=== PATIENT | male | born 1960 | race Caucasian/White ===

== ENCOUNTER 2016-04-11 21:33 | Emergency (ER) | payer OTHER ==
[~2016-04-11] VITALS: Ht 180.3 cm; Wt 124.1 kg
[~2016-04-11 21:33] MED LIST: ADVIL200 MG PO; AMLODIPINE BESYL5 MG PO; AUGMENTIN875 MG PO; AZITHROMYCIN500 M1 PO; CARVEDILOL6.25 MG PO; COZAAR50 MG PO; FISH OIL 1,0001 EAC8 PO; FLAXSEED-FISH-400 MG PO; FLEXERIL10 MG PO; FLONASE16 G1 BOTH NARES; FLOVENT DISKUS1 DIS2 IH; LO-DOSE ASPIRIN81 M2 PO; MAGNESIUM OXID500 MG PO; NABUMETONE750 MG PO; ONE DAILY WITH1 EACH PO; VITAMIN D34000 UNIT PO
[2016-04-11] MEDS ORDERED: CARVEDILOL6.25 MG PO (22:27)
[2016-04-11] MEDS ORDERED: AMLODIPINE BESYL5 MG PO (22:27)
[2016-04-11 22:51] VITALS: BP 165/102
== END 2016-04-11 22:52 | disposition home or self-care (01) ==
LOC: EME 21:33
DX: I10 Essential (primary) hypertension (principal); Z76.0 Encounter for issue of repeat prescription; Z79.82 Long term (current) use of aspirin; Z88.1 Allergy status to other antibiotic agents
CPT/HCPCS: 99281; 99284